=== PATIENT | female | born 1965 | race Caucasian/White ===

== ENCOUNTER → 2017-10-17 | Outpatient (CLI) | payer BC ==
[~2017-10-17] VITALS: Ht 175.3 cm; Wt 97.1 kg
[~2017-10-17] MED LIST: BENADRYL25 MG PO; BISACODYL10 MG RC; CELEBREX 200 M200 MG PO; CLEOCIN HCL150 MG PO; COLACE100 MG PO; ESCITALOPRAM OX10 MG PO; FLEXERIL PO; IBUPROFEN 800800 M1 PO; NORCO 5-325 TA1 EACH PO; PERCOCET PO; PHENTERMINE H37.5 M1 PO; PREDNISONE 20 M20 MG PO; TRAMADOL 50 MG50 MG PO; TYLENOL325 MG PO; VALIUM5 MG PO; XANAX 0.5 MG0.5 MG PO; XANAX1 MG; ZOFRAN ODT4 MG PO
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
[2017-10-17 12:38] VITALS: BP 136/84
== END | disposition home or self-care (01) ==
LOC: PAIN 09-19 07:06
DX: M54.12 Radiculopathy, cervical region (principal); M19.012 Primary osteoarthritis, left shoulder; M25.512 Pain in left shoulder; F41.8 Other specified anxiety disorders; F32.9 Major depressive disorder, single episode, unspecified; Z98.890 Other specified postprocedural states; Z90.49 Acquired absence of other specified parts of digestive tract; Z90.710 Acquired absence of both cervix and uterus; Z88.0 Allergy status to penicillin; Z79.899 Other long term (current) drug therapy